=== PATIENT | female | born 1990 | race Hispanic/Latino ===

== ENCOUNTER 2017-06-12 11:42 | Emergency (ER) | payer BC, SELFPAY ==
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
--- NOTE | 2017-06-12 12:12 | RAD ---
RIGHT ANKLE THREE VIEWS: HISTORY: Ankle pain. FINDINGS: Mild soft tissue swelling. No fracture identified. IMPRESSION: No acute fracture. POS: [facility]
== END 2017-06-12 12:55 | disposition home or self-care (01) ==
LOC: ERS 11:42
DX: S90.01XA Contusion of right ankle, initial encounter (principal); S20.219A Contusion of unspecified front wall of thorax, initial encounter; V44.9XXA Unspecified car occupant injured in collision with heavy transport vehicle or bus in traffic accident, initial encounter; W22.10XA Striking against or struck by unspecified automobile airbag, initial encounter
CPT/HCPCS: 71046

== ENCOUNTER 2017-06-26 17:06 | Emergency (ER) | payer SELFPAY ==
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
== END 2017-06-26 18:27 | disposition home or self-care (01) ==
LOC: ERS 17:06
DX: S93.421A Sprain of deltoid ligament of right ankle, initial encounter (principal); J45.909 Unspecified asthma, uncomplicated; F41.9 Anxiety disorder, unspecified; F31.9 Bipolar disorder, unspecified; X50.1XXA Overexertion from prolonged static or awkward postures, initial encounter

== ENCOUNTER 2017-09-21 21:25 | Emergency (ER) | payer BC, SELFPAY ==
[2017-09-21 22:09] LABS: #Eosinphils 0.2 thou/uL (0.0-0.7); #Lymphocytes 3.5 thou/uL (1.20-3.40); #Monocytes 0.6 thou/uL (0.11-0.59); #Neutrophils 5.1 thou/uL (1.40-6.50); %Basophils 0.4 % (0.0-1.0); %Eosinophils 2.3 % (0.0-10.0); %Lymphocytes 37.3 % (21.0-51.0); %Monocytes 6.4 % (0.0-10.0); %Neutrophils 53.6 % (42.0-75.0); Hemoglobin 12.6 g/dL (12.0-16.0); Mean Corpuscular Hemoglobin 29.3 pg (27.0-31.0); Mean Platelet Volume 7.3 fL (7.4-10.4); Platelet Count 328 thou/uL (130-400); RBC Distribution Width 12.1 % (11.5-14.5); Red Blood Cell (RBC) Count 4.31 mill/uL (4.20-5.40); White Blood Cell (WBC) Count 9.4 thou/uL (4.8-10.8)
--- NOTE | 2017-09-21 23:26 | ULT ---
PELVIC ULTRASOUND: 09/21/17 COMPARISON: None. HISTORY: Positive home test, vaginal bleeding. TECHNIQUE: Multiplanar chicas scale sonographic imaging of the pelvis obtained with transabdominal and endovaginal imaging. The ovaries assessed with color flow and spectral analysis. FINDINGS: the uterus measures 7.5 x 3.2 x 4.2 cm. Right ovary measures 3.7 x 2.1 x 2.2 cm and left ovary measur es 2.8 x 1.8 x 2.5 cm. No uterine or ovarian mass. The endometrial stripe measures approximately 4 mm . There is no intrauterine gestational sac. There is no free fluid. IMPRESSION: Unremarkable pelvic ultrasound, demonstrating no evidence for intrauterine gestation. If the patient is in fact , these findings can be seen on the basis of normal early , spontaneous a bortion, or sonographically occult ectopic . Correlation with quantitative beta HCG at this time and in 48 hours is advised. POS: [facility]
[2017-09-22] MEDS ORDERED: Acetaminophen 500 MG TAB ONE (00:03)
== END 2017-09-22 00:38 | disposition home or self-care (01) ==
LOC: ERS 21:25
DX: O20.0 Threatened abortion (principal); J45.909 Unspecified asthma, uncomplicated; F41.9 Anxiety disorder, unspecified; F31.9 Bipolar disorder, unspecified; Z3A.01 Less than 8 weeks gestation of pregnancy
CPT/HCPCS: 36415; 76856; 84702; 85025; 86900; 86901

== ENCOUNTER 2018-03-06 13:30 | Emergency (ER) | payer BC ==
[2018-03-06] MEDS ORDERED: predniSONE 20 MG TAB ONE (14:22)
== END 2018-03-06 15:55 | disposition home or self-care (01) ==
LOC: ERS 13:30
DX: J45.901 Unspecified asthma with (acute) exacerbation (principal); F41.9 Anxiety disorder, unspecified; F31.9 Bipolar disorder, unspecified; Z79.899 Other long term (current) drug therapy
CPT/HCPCS: 94640; J7506; J7620

== ENCOUNTER 2018-04-22 19:05 | Emergency (ER) | payer BC | END 2018-04-22 19:19 | disposition left against medical advice (07) | LOC: ERS 19:05 | DX: Z53.21 Procedure and treatment not carried out due to patient leaving prior to being seen by health care provider (principal) ==

== ENCOUNTER 2019-03-25 11:34 | Emergency (ER) | payer BC, SELFPAY | END 2019-03-25 13:02 | disposition home or self-care (01) | LOC: ERS 11:34 | DX: M54.5 Low back pain (principal); J45.909 Unspecified asthma, uncomplicated | CPT/HCPCS: 99283 ==

== ENCOUNTER 2019-08-30 18:05 | Emergency (ER) | payer BC ==
[2019-08-30 18:45] LABS: Bacteria/HPF 1+ HPF (None Seen); Bilirubin Negative (Negative); Blood, Urine 1+ (Negative); Clarity Clear (Clear); Glucose, Urine (Dipstick) Normal (Negative); Leukocyte 500 Leu/uL (Negative); Nitrite Negative (Negative); Protein, Urine (Dipstick) 20 mg/dL (Neg-Trace); Squamous Epithelial 0-3 HPF (0-3); Urobilinogen Normal mg/dL (Less than 2); WBC/HPF Greater than 50 HPF (0-3)
[2019-08-30 18:47] LABS: #Eosinphils 0.1 thou/uL (0.0-0.7); #Lymphocytes 3.2 thou/uL (1.20-3.40); #Monocytes 0.8 thou/uL (0.11-0.59); #Neutrophils 7.9 thou/uL (1.40-6.50); %Basophils 0.3 % (0.0-1.0); %Eosinophils 1.1 % (0.0-10.0); %Lymphocytes 26.6 % (21.0-51.0); %Monocytes 6.5 % (0.0-10.0); %Neutrophils 65.4 % (42.0-75.0); Hemoglobin 13.1 g/dL (12.0-16.0); Mean Corpuscular HGB CONC 34.3 g/dL (32.0-36.0); Mean Corpuscular Hemoglobin 30.5 pg (27.0-31.0); Mean Platelet Volume 7.9 fL (7.4-10.4); Platelet Count 308 thou/uL (130-400); RBC Distribution Width 12.6 % (11.5-14.5); Red Blood Cell (RBC) Count 4.29 mill/uL (4.20-5.40); White Blood Cell (WBC) Count 12.1 thou/uL (4.8-10.8)
--- NOTE | 2019-08-30 20:36 | ULT ---
PELVIC ULTRASOUND 08/30/19 COMPARISON: None. HISTORY: female with vaginal spotting. TECHNIQUE: Multiplanar chicas scale sonographic imaging of the pelvis obtained with transabdominal imaging. FINDINGS: The uterus measures 13.4 x 8.1 cm and contains an intrauterine gestational sac with a single po le. There is a hypoechoic 1.9 x 0.9 x 1.7 cm area adjacent to the placenta suggesting a small subcho rionic hemorrhage. [place]-rump length is 6.7 cm, correlating with a 13 week, 0 day gestation. presentation is breech. heart rate is 153 beats per minute. Right ovary measures 3.3 x 1.7 x 3.2 cm and left ovary measures 2.5 x 1.5 x 1.2 cm. No free fluid in the pelvis. Cervical length is 3.5 cm. BIOMETRY: BPD 2.3 cm 13 weeks, 6 days HC 8.6 cm 13 weeks, 6 days AC 6.8 cm 13 weeks, 3 days FL 0.9 cm 12 weeks, 5 days Average age based on ultrasound is 13 weeks, 3 days. Estimated date of delivery is 03/03/20. heart rate 153 beats per minute. IMPRESSION: Single intrauterine gestation as detailed above. Possible small subchorionic hemorrhage measuring up to 1.9 cm. POS: [facility]
== END 2019-08-30 21:20 | disposition home or self-care (01) ==
LOC: ERS 18:05
DX: O20.0 Threatened abortion (principal); O23.41 Unspecified infection of urinary tract in pregnancy, first trimester; O99.511 Diseases of the respiratory system complicating pregnancy, first trimester; J45.909 Unspecified asthma, uncomplicated; Z3A.13 13 weeks gestation of pregnancy
CPT/HCPCS: 36415; 76856; 81003; 81015; 84702; 85025; 86900; 86901

== ENCOUNTER 2021-09-02 09:11 | Emergency (ER) | payer MEDICAID | END 2021-09-02 09:31 | disposition home or self-care (01) | LOC: ERS 09:11 | DX: S01.112D Laceration without foreign body of left eyelid and periocular area, subsequent encounter (principal); X58.XXXD Exposure to other specified factors, subsequent encounter ==

== ENCOUNTER 2021-09-16 17:33 | Emergency (ER) | payer MEDICAID, OTHER ==
[2021-09-16] MEDS ORDERED: Ibuprofen 200 MG TAB ONE (18:52)
== END 2021-09-16 18:55 ==
LOC: ERS 17:33
DX: S00.83XA Contusion of other part of head, initial encounter (principal); M54.9 Dorsalgia, unspecified; Y04.2XXA Assault by strike against or bumped into by another person, initial encounter
CPT/HCPCS: 70450; 71045; 72170

== ENCOUNTER 2023-08-02 20:26 | Emergency (ER) | payer BC, MEDICAID ==
[2023-08-02] MEDS ORDERED: Ondansetron ODT 4 MG TAB ONE (20:36)
[2023-08-02] MEDS ORDERED: HYDROcodone/Acetaminophen 10/325 mg Tablet ONE (20:36)
[2023-08-02] MEDS ORDERED: Bupivacaine 0.25% 10 ML VIAL ONE (20:42)
[2023-08-02] MEDS ORDERED: Lidocaine 1% MPF 2 ML VIAL ONE (21:38)
[2023-08-02] MEDS ORDERED: CEFAZOLIN 2 GM VIAL ONE (21:39)
[2023-08-02] MEDS ORDERED: Sterile Water 10 ML ONE (21:43)
[2023-08-02] MEDS ORDERED: Lidocaine 1% PF 5 ML VIAL ONE (21:44)
[2023-08-02] MEDS ORDERED: Bacitracin 1 PK ONE (22:27)
== END 2023-08-02 22:37 | disposition home or self-care (01) ==
LOC: ERS 20:26
DX: S62.636A Displaced fracture of distal phalanx of right little finger, initial encounter for closed fracture (principal); S61.216A Laceration without foreign body of right little finger without damage to nail, initial encounter; W23.1XXA Caught, crushed, jammed, or pinched between stationary objects, initial encounter; Y92.009 Unspecified place in unspecified non-institutional (private) residence as the place of occurrence of the external cause
CPT/HCPCS: 12002; 96372; 96374; J0665; Q0162